=== PATIENT | male | born 1955 | race Two or more races ===

== ENCOUNTER 2022-04-17 10:35 | Emergency (ER) | payer MEDICAID ==
[~2022-04-17] VITALS: Ht 165.1 cm; Wt 66.0 kg
[2022-04-17 10:51] VITALS: BP 178/98
[2022-04-17] MEDS: MAGNESIUM/ALUMINUM HYDROXIDE/SIMETHICONE 30ML UDC PO STA (13:28)
[2022-04-17] MEDS ORDERED: OMEP40CA20 MT (16:09)
== END 2022-04-17 16:53 | disposition home or self-care (01) ==
LOC: ER 10:35
DX: B34.9 Viral infection, unspecified (principal)
CPT/HCPCS: 71045; 87070; 87430; 99284

== ENCOUNTER 2022-04-27 17:28 | Inpatient (IN) | payer MEDICAID, OTHER ==
[~2022-04-27] VITALS: Ht 167.6 cm; Wt 69.9 kg
[~2022-04-27 17:28] MED LIST: OMEP40CA20 MT
[2022-04-27 20:11] LABS: BASOPHILS % 0.4 % (0.0-2.0); HEMATOCRIT. 48.4 % (42.0-52.0); HEMOGLOBIN. 15.7 g/dL (14.0-18.0); MEAN CORPUSCULAR HEMOGLOBIN 31.7 pg (28.0-32.0); MEAN CORPUSCULAR VOLUME 98.1 fL (80.0-94.0); MONOCYTES % 7.4 % (2.0-8.0); NEUTROPHILS % 35.2 % (40.0-76.0); PLATELET 131 x1000/uL (130-400); RED BLOOD CELL COUNT 4.93 mill/uL (4.7-6.1); RED CELL DISTRIBUTION WIDTH 13.9 % (11.6-14.6)
[2022-04-27 20:12] LABS: CLARITY URINE CLEAR (CLEAR); COLOR URINE YELLOW (YELLOW); KETONES URINE NEGATIVE (NEGATIVE); LEUKOCYTE ESTERASE URINE TRACE (NEGATIVE); NITRITE URINE NEGATIVE (NEGATIVE); OCCULT BLOOD URINE TRACE (NEGATIVE); PH URINE 6.5 (4.5-8.0); PROTEIN URINE 2+ (NEGATIVE); SPECIFIC GRAVITY URINE 1.017 (1.005-1.030); UROBILINOGEN URINE 0.2 E.U./dL (0.2-1.0)
[2022-04-27 20:19] LABS: CHLORIDE 107 mEq/L (98-107)
[2022-04-27] MEDS ORDERED: CLONIDINE 0.1MG TABLET PO ONE (21:00)
[2022-04-27] MEDS ORDERED: ASPIRIN 325MG TABLET PO ONE (22:30)
[2022-04-28 12:30] VITALS: BP 176/109
[2022-04-28 12:40] VITALS: BP 176/109
[2022-04-28 16:00] VITALS: BP 167/97
[2022-04-28] MEDS ORDERED: ACETAMINOPHEN 325MG TABLET PO PRN (16:00)
[2022-04-28] MEDS: HYDRALAZINE HCL 50MG TABLET PO SCH ×2 (16:24→21:43)
[2022-04-28] MEDS: AMLODIPINE 10MG TABLET PO SCH (16:25)
[2022-04-28 20:00] VITALS: BP 126/84
[2022-04-29] VITALS: BP 129/68
[2022-04-29 04:00] VITALS: BP 144/78
[2022-04-29 08:00] VITALS: BP 163/100
[2022-04-29] MEDS ORDERED: ONDANSETRON HCL 4MG/2ML INJ IV PRN (08:45)
[2022-04-29] MEDS: HYDRALAZINE HCL 50MG TABLET PO SCH (09:27)
[2022-04-29] MEDS: AMLODIPINE 10MG TABLET PO SCH (09:28)
[2022-04-29] MEDS ORDERED: HYDR100T26 MT (11:54)
[2022-04-29] MEDS ORDERED: AMLO10TA80 PO (11:54)
[2022-04-29 12:00] VITALS: BP 148/90
[2022-04-29 16:00] VITALS: BP 158/96
[2022-04-29 17:22] VITALS: BP 158/96
== END 2022-04-29 18:30 | disposition home or self-care (01) | DRG 199 ==
LOC: ER 17:28 → 7EST 23:11 → EDBEDREQ 04-28 07:53 → EDBEDREQTM 04-28 07:53
PROVIDERS: ADMIT Internal Medicine; ATTEND Internal Medicine
DX: I16.0 Hypertensive urgency (principal); R03.0 Elevated blood-pressure reading, without diagnosis of hypertension; Z79.899 Other long term (current) drug therapy
CPT/HCPCS: 36415; 80053; 81003; 84484; 85025; 93005; 99285